=== PATIENT | female | born 1950 | race Caucasian/White ===

== ENCOUNTER 2017-09-16 12:51 | Inpatient (IN) | payer MEDICARE, MEDICAID ==
[~2017-09-16] VITALS: Ht 157.5 cm; Wt 100.0 kg
[~2017-09-16 12:51] MED LIST: ALBU8HFA INH; ALBU8HFA PO; ASPI-1265 PO; ATOR10TA87 PO; DULO-31 PO; FOLI-43 PO; FURO-150 PO; LOP25T PO; PANT-47 PO; SYN0.088T PO
[2017-09-16] MEDS ORDERED: aspirin 81mg tab.chew PO ONE (13:05)
[2017-09-16] MEDS ORDERED: nitroGLYCERIN 0.4mg SUBLingual tab SL PRN ×2 (13:05→14:20)
[2017-09-16] MEDS ORDERED: LORazepam 1 MG tablet PO ONE (13:10)
[2017-09-16 13:22] LABS: BASOPHILS % (AUTO) 0.5 % (0-1); EOSINOPHILS # (AUTO) 0.2 X10'3 (0-0.9); EOSINOPHILS % (AUTO) 2.4 % (0-6); HEMATOCRIT 38.3 % (35.0-45.0); HEMOGLOBIN 13.6 g/dl (12.0-16.0); LYMPHOCYTES # (AUTO) 2.1 X10'3 (1.1-4.8); LYMPHOCYTES % (AUTO) 26.9 % (21-51); MEAN CORPUSCULAR HEMOGLOBIN 32.7 PG (27.0-31.0); MEAN CORPUSCULAR HGB CONC 35.4 % (33.0-36.5); MEAN CORPUSCULAR VOLUME 92.2 FL (78-98); MEAN PLATELET VOLUME 7.3 FL (7.4-10.4); MONOCYTES # (AUTO) 0.5 X10'3 (0-0.9); MONOCYTES % (AUTO) 6.2 % (2-12); PLATELET COUNT 265 X10'3 (140-440); RED BLOOD COUNT 4.16 X10'6 (4.20-5.60); RED CELL DISTRIBUTION WIDTH 14.6 % (11.5-14.5); WHITE BLOOD COUNT 7.8 X10'3 (4.5-11.0)
[2017-09-16 13:37] LABS: PARTIAL THROMBOPLASTIN TIME 24 SECONDS (22-32); PROTHROMBIN TIME 10.7 SECONDS (9.0-12.0)
[2017-09-16 13:49] LABS: ALANINE AMINOTRANSFERASE 44 U/L (12-78); ALBUMIN 3.8 G/DL (3.4-5.0); ALBUMIN/GLOBULIN RATIO 0.9 (1.1-1.5); ALKALINE PHOSPHATASE 97 IU/L (46-116); ANION GAP 12 (8-16); ASPARTATE AMINO TRANSFERASE 28 U/L (10-37); BILIRUBIN,TOTAL 1.3 MG/DL (0.1-1.0); BLOOD UREA NITROGEN 17 MG/DL (7-18); BUN/CREATININE RATIO 20.5 (6.6-38.0); CHLORIDE 107 MMOL/L (99-107); CREATININE 0.83 MG/DL (0.40-0.90); GLUCOSE 154 MG/DL (70-104); MAGNESIUM 1.8 MG/DL (1.5-2.4); POTASSIUM 3.7 MMOL/L (3.5-5.1); SODIUM 141 MMOL/L (135-145); TOTAL CARBON DIOXIDE 22.5 MMOL/L (24-32); TOTAL PROTEIN 7.9 G/DL (6.4-8.2); eGFR 68 ML/MIN
[2017-09-16 13:53] LABS: D-DIMER 0.26 MG/L FEU (0-0.50)
[2017-09-16] MEDS ORDERED: regadenoson 0.4mg/5ml syringe IV ONE (14:20)
[2017-09-16] MEDS ORDERED: metoprolol tartrate 1mg/ml inj IV PRN (14:20)
[2017-09-16] MEDS ORDERED: LORazepam 0.5 MG tablet PO PRN (14:20)
[2017-09-16] MEDS ORDERED: aminophylline 250mg/10ml inj. IV PRN (14:20)
[2017-09-16] MEDS ORDERED: ALBUTEROL INH PRN (14:20)
[2017-09-16] MEDS ORDERED: HYDROcodone/acetaminophen 10/325mg tab PO PRN (17:00)
[2017-09-16] MEDS ORDERED: ondansetron/PF 4mg/2ml inj IV PRN (17:00)
[2017-09-16] MEDS ORDERED: morphine 4 MG/ML inj SYRINge IV PRN (17:00)
[2017-09-16] MEDS ORDERED: mag hydrox/Alum hydrox/simeth 30ml oral suspension PO PRN (17:00)
[2017-09-16] MEDS ORDERED: HYDROcodone/acetaminophen 5mg/325mg tablet PO PRN (17:00)
[2017-09-16] MEDS ORDERED: acetaminophen 325mg tablet PO PRN (17:00)
[2017-09-16] MEDS ORDERED: magnesium hydroxide 30ml (MOM) UD suspension PO PRN (17:00)
[2017-09-16] MEDS ORDERED: albuterol 2.5 MG/3 ML nebule NEB PRN (17:10)
[2017-09-16] MEDS: duloxetine 30mg CAPSULE.DR PO SCH (20:36)
[2017-09-16 21:00] VITALS: BP 159/59
[2017-09-16] MEDS ORDERED: atorvastatin 10mg tablet PO SCH (21:00)
[2017-09-16 23:00] VITALS: BP 131/65
[2017-09-17] VITALS (14 sets, daily range): BP systolic 124–153; BP diastolic 52–75
[2017-09-17 01:38] LABS: ALANINE AMINOTRANSFERASE 41 U/L (12-78); ALBUMIN 3.5 G/DL (3.4-5.0); ALBUMIN/GLOBULIN RATIO 0.9 (1.1-1.5); ALKALINE PHOSPHATASE 89 IU/L (46-116); ANION GAP 11 (8-16); ASPARTATE AMINO TRANSFERASE 28 U/L (10-37); BILIRUBIN,TOTAL 1.3 MG/DL (0.1-1.0); BLOOD UREA NITROGEN 20 MG/DL (7-18); CALCIUM 9.2 MG/DL (8.5-10.1); CHLORIDE 104 MMOL/L (99-107); CREATININE 0.77 MG/DL (0.40-0.90); GLUCOSE 102 MG/DL (70-104); POTASSIUM 3.6 MMOL/L (3.5-5.1); SODIUM 140 MMOL/L (135-145); TOTAL CARBON DIOXIDE 25.3 MMOL/L (24-32); TOTAL PROTEIN 7.3 G/DL (6.4-8.2); eGFR 75 ML/MIN
[2017-09-17 01:50] LABS: BASOPHILS % (AUTO) 0.6 % (0-1); EOSINOPHILS # (AUTO) 0.3 X10'3 (0-0.9); EOSINOPHILS % (AUTO) 4.3 % (0-6); HEMATOCRIT 36.4 % (35.0-45.0); HEMOGLOBIN 12.8 g/dl (12.0-16.0); LYMPHOCYTES # (AUTO) 2.3 X10'3 (1.1-4.8); MEAN CORPUSCULAR HEMOGLOBIN 32.6 PG (27.0-31.0); MEAN CORPUSCULAR HGB CONC 35.1 % (33.0-36.5); MEAN PLATELET VOLUME 7.4 FL (7.4-10.4); MONOCYTES # (AUTO) 0.6 X10'3 (0-0.9); NEUTROPHILS # (AUTO) 3.9 X10'3 (1.8-7.7); NEUTROPHILS % (AUTO) 54.1 % (42-75); PLATELET COUNT 224 X10'3 (140-440); RED BLOOD COUNT 3.92 X10'6 (4.20-5.60); RED CELL DISTRIBUTION WIDTH 14.7 % (11.5-14.5); WHITE BLOOD COUNT 7.2 X10'3 (4.5-11.0)
[2017-09-17] MEDS ORDERED: regadenoson 0.4mg/5ml syringe IV ONE ×2 (06:00→09:55)
[2017-09-17] MEDS: duloxetine 30mg CAPSULE.DR PO SCH (07:56)
[2017-09-17] MEDS ORDERED: enoxaparin 40mg/0.4ml syringe SQ SCH (08:00)
[2017-09-17] MEDS ORDERED: levoTHYROXINE 88mcg tablet PO SCH (08:00)
[2017-09-17] MEDS ORDERED: furosemide 20MG tablet PO SCH (08:00)
[2017-09-17] MEDS ORDERED: folic acid 1mg tablet PO SCH (08:00)
[2017-09-17] MEDS ORDERED: metoprolol tartrate 25mg tablet PO SCH (08:00)
[2017-09-17] MEDS ORDERED: aspirin 81mg tab.chew PO SCH (08:00)
[2017-09-17] MEDS ORDERED: pantoprazole 40mg Tablet.DR PO SCH (08:00)
[2017-09-17] MEDS ORDERED: aminophylline inj. 10 ML IV ONE (09:55)
== END 2017-09-17 14:48 | disposition home or self-care (01) | DRG 313 ==
LOC: ER 12:52 → ED HOLD 17:00 → EDBEDREQ 18:14 → PCU 3S 19:10
PROVIDERS: ADMIT Internal Medicine; ATTEND Internal Medicine
PROC: 4A02XM4 Measurement of Cardiac Total Activity, External Approach (ICD-10-PCS; principal; 2017-09-17)
PROC: 3E073KZ Introduction of Other Diagnostic Substance into Coronary Artery, Percutaneous Approach (ICD-10-PCS; 2017-09-17)
DX: R07.89 Other chest pain (principal); I25.10 Atherosclerotic heart disease of native coronary artery without angina pectoris; I11.0 Hypertensive heart disease with heart failure; I50.30 Unspecified diastolic (congestive) heart failure; E66.01 Morbid (severe) obesity due to excess calories; Z68.41 Body mass index [BMI] 40.0-44.9, adult; E03.9 Hypothyroidism, unspecified; E78.00 Pure hypercholesterolemia, unspecified; F32.9 Major depressive disorder, single episode, unspecified; F41.1 Generalized anxiety disorder; K21.9 Gastro-esophageal reflux disease without esophagitis; M06.9 Rheumatoid arthritis, unspecified; Z60.2 Problems related to living alone; Z56.0 Unemployment, unspecified; I25.2 Old myocardial infarction; Z90.710 Acquired absence of both cervix and uterus; Z79.899 Other long term (current) drug therapy; Z79.82 Long term (current) use of aspirin; Z82.49 Family history of ischemic heart disease and other diseases of the circulatory system
CPT/HCPCS: 36415; 71045; 78452; 80053; 83735; 83880; 84439; 84443; 84484; 85025; 85379; 85610; 85730; 87070; 93005; 93017; 93306; 99285; A9500; J0280; J1650

== ENCOUNTER 2021-01-02 13:58 | Emergency (ER) | payer MEDICARE, MEDICAID ==
[~2021-01-02] VITALS: Ht 157.5 cm; Wt 95.0 kg
[2021-01-02 14:25] VITALS: BP 118/79
[2021-01-02 15:41] LABS: BASOPHILS # (AUTO) 0.1 X10'3 (0-0.2); BASOPHILS % (AUTO) 0.9 % (0-1); EOSINOPHILS # (AUTO) 0.2 X10'3 (0-0.9); EOSINOPHILS % (AUTO) 2.3 % (0-6); HEMATOCRIT 37.7 % (35.0-45.0); HEMOGLOBIN 12.8 g/dl (12.0-16.0); LYMPHOCYTES # (AUTO) 2.1 X10'3 (1.1-4.8); LYMPHOCYTES % (AUTO) 23.9 % (21-51); MEAN CORPUSCULAR HEMOGLOBIN 29.9 PG (27.0-31.0); MEAN CORPUSCULAR HGB CONC 34.1 g/dL (33.0-36.5); MEAN CORPUSCULAR VOLUME 87.7 FL (78-98); MEAN PLATELET VOLUME 7.2 FL (7.4-10.4); MONOCYTES # (AUTO) 0.9 X10'3 (0-0.9); MONOCYTES % (AUTO) 10.5 % (2-12); NEUTROPHILS # (AUTO) 5.6 X10'3 (1.8-7.7); NEUTROPHILS % (AUTO) 62.4 % (42-75); PLATELET COUNT 359 X10'3 (140-440); RED BLOOD COUNT 4.29 X10'6 (4.20-5.60); RED CELL DISTRIBUTION WIDTH 12.9 % (11.5-14.5); WHITE BLOOD COUNT 8.9 X10'3 (4.5-11.0)
[2021-01-02 16:12] LABS: ALANINE AMINOTRANSFERASE 21 U/L (12-78); ALBUMIN 3.4 G/DL (3.4-5.0); ALBUMIN/GLOBULIN RATIO 0.6 (1.1-1.5); ALKALINE PHOSPHATASE 86 IU/L (46-116); ANION GAP 12 (8-16); ASPARTATE AMINO TRANSFERASE 27 U/L (10-37); BILIRUBIN,TOTAL 0.8 MG/DL (0.1-1.0); BLOOD UREA NITROGEN 17 MG/DL (7-18); BUN/CREATININE RATIO 21.5 (6.6-38.0); CALCIUM 8.8 MG/DL (8.5-10.1); CHLORIDE 103 MMOL/L (99-107); CREATININE 0.79 MG/DL (0.40-0.90); GLUCOSE 112 MG/DL (70-104); POTASSIUM 4.4 MMOL/L (3.5-5.1); SODIUM 138 MMOL/L (135-145); TOTAL CARBON DIOXIDE 23.4 MMOL/L (24-32); TOTAL PROTEIN 8.8 G/DL (6.4-8.2); eGFR 72 ML/MIN
== END 2021-01-02 22:16 | disposition left against medical advice (07) ==
LOC: ER 13:59
DX: F41.9 Anxiety disorder, unspecified (principal); Z53.21 Procedure and treatment not carried out due to patient leaving prior to being seen by health care provider
CPT/HCPCS: 36415; 71045; 80053; 83880; 84484; 85025; 93005; 99285

== ENCOUNTER 2021-09-09 09:53 | Emergency (ER) | payer MEDICARE, MEDICAID ==
[~2021-09-09] VITALS: Ht 157.5 cm; Wt 93.1 kg
[2021-09-09 10:01] VITALS: BP 180/102
[2021-09-09] MEDS ORDERED: HYDROcodone/acetaminophen 5mg/325mg tablet PO ONE (10:10)
[2021-09-09 10:43] LABS: BASOPHILS # (AUTO) 0.1 X10'3 (0-0.2); BASOPHILS % (AUTO) 1.2 % (0-1); EOSINOPHILS # (AUTO) 0.2 X10'3 (0-0.9); EOSINOPHILS % (AUTO) 2.5 % (0-6); HEMATOCRIT 31.4 % (35.0-45.0); HEMOGLOBIN 10.8 g/dl (12.0-16.0); LYMPHOCYTES # (AUTO) 1.6 X10'3 (1.1-4.8); LYMPHOCYTES % (AUTO) 17.2 % (21-51); MEAN CORPUSCULAR HEMOGLOBIN 30.1 PG (27.0-31.0); MEAN CORPUSCULAR HGB CONC 34.4 g/dL (33.0-36.5); MEAN CORPUSCULAR VOLUME 87.4 FL (78-98); MEAN PLATELET VOLUME 7.1 FL (7.4-10.4); MONOCYTES # (AUTO) 0.7 X10'3 (0-0.9); MONOCYTES % (AUTO) 7.4 % (2-12); NEUTROPHILS # (AUTO) 6.7 X10'3 (1.8-7.7); NEUTROPHILS % (AUTO) 71.7 % (42-75); PLATELET COUNT 318 X10'3 (140-440); RED BLOOD COUNT 3.59 X10'6 (4.20-5.60); RED CELL DISTRIBUTION WIDTH 15.6 % (11.5-14.5); WHITE BLOOD COUNT 9.4 X10'3 (4.5-11.0)
[2021-09-09 10:55] LABS: ALANINE AMINOTRANSFERASE 16 U/L (12-78); ALBUMIN 3.5 G/DL (3.4-5.0); ALBUMIN/GLOBULIN RATIO 0.7 (1.1-1.5); ALKALINE PHOSPHATASE 98 IU/L (46-116); ANION GAP 10 (8-16); ASPARTATE AMINO TRANSFERASE 19 U/L (10-37); BLOOD UREA NITROGEN 13 MG/DL (7-18); BUN/CREATININE RATIO 21.3 (6.6-38.0); CALCIUM 9.3 MG/DL (8.5-10.1); CHLORIDE 104 MMOL/L (99-107); CREATININE 0.61 MG/DL (0.40-0.90); GLUCOSE 103 MG/DL (70-104); POTASSIUM 4.4 MMOL/L (3.5-5.1); SODIUM 140 MMOL/L (135-145); TOTAL CARBON DIOXIDE 26.5 MMOL/L (24-32); TOTAL PROTEIN 8.6 G/DL (6.4-8.2); eGFR > 90 ML/MIN
--- NOTE | 2021-09-09 10:58 | NUR ---
pt trying to leave. states," im not putting those greens on" i live down the [address] and im fine. informed jailene dimas. got pt back to room and will have [facility] evaluate pt.
[2021-09-09 11:05] LABS: ETHANOL < 0.010 GM/DL (0.0-0.010)
== END 2021-09-10 07:15 | disposition home or self-care (01) ==
LOC: ER 09:58
DX: R45.851 Suicidal ideations (principal); F32.A Depression, unspecified; G89.4 Chronic pain syndrome; M06.9 Rheumatoid arthritis, unspecified; I11.0 Hypertensive heart disease with heart failure; I50.9 Heart failure, unspecified; E78.00 Pure hypercholesterolemia, unspecified; I25.2 Old myocardial infarction; E03.9 Hypothyroidism, unspecified; F41.9 Anxiety disorder, unspecified; Z90.49 Acquired absence of other specified parts of digestive tract; Z90.710 Acquired absence of both cervix and uterus; Z98.890 Other specified postprocedural states; Z95.1 Presence of aortocoronary bypass graft; Z60.2 Problems related to living alone; Z56.0 Unemployment, unspecified; Z79.82 Long term (current) use of aspirin; Z79.899 Other long term (current) drug therapy
CPT/HCPCS: 36415; 80053; 80320; 84443; 85025; 99285

== ENCOUNTER 2022-07-25 05:21 | Inpatient (IN) | payer MEDICARE, MEDICAID ==
[2022-07-18 15:26] LABS: BASOPHILS # (AUTO) 0.1 X10'3 (0-0.2); EOSINOPHILS # (AUTO) 0.3 X10'3 (0-0.9); EOSINOPHILS % (AUTO) 3.3 % (0-6); LYMPHOCYTES % (AUTO) 23.5 % (21-51); MEAN CORPUSCULAR HEMOGLOBIN 31.2 PG (27.0-31.0); MEAN CORPUSCULAR HGB CONC 33.9 g/dL (33.0-36.5); MEAN PLATELET VOLUME 7.1 FL (7.4-10.4); MONOCYTES # (AUTO) 0.7 X10'3 (0-0.9); MONOCYTES % (AUTO) 7.9 % (2-12); NEUTROPHILS # (AUTO) 5.6 X10'3 (1.8-7.7); NEUTROPHILS % (AUTO) 64.3 % (42-75); PRE OP HEMATOCRIT 34.8 % (35.0-45.0); PRE OP HEMOGLOBIN 11.8 g/dL (12.0-16.0); PRE OP PLATELET COUNT 313 X10'3 (140-440); RED BLOOD COUNT 3.79 X10'6 (4.20-5.60); RED CELL DISTRIBUTION WIDTH 13.9 % (11.5-14.5)
[2022-07-18 15:50] LABS: ALBUMIN/GLOBULIN RATIO 0.9 (1.1-1.5); ALKALINE PHOSPHATASE 105 IU/L (46-116); BLOOD UREA NITROGEN 15 MG/DL (7-18); BUN/CREATININE RATIO 19.5 (6.6-38.0); CALCIUM 9.3 MG/DL (8.5-10.1); CHLORIDE 102 MMOL/L (99-107); CREATININE 0.77 MG/DL (0.40-0.90); PRE OP ALT 24 U/L (30-65); PRE OP ANION GAP 7 (8-16); PRE OP AST 23 U/L (10-37); PRE OP GLUCOSE 100 MG/DL (70-104); PRE OP POTASSIUM 3.7 MMOL/L (3.4-5.1); PRE OP SODIUM 138 MMOL/L (135-145); TOTAL CARBON DIOXIDE 28.7 MMOL/L (24-32); TOTAL PROTEIN 8.5 G/DL (6.4-8.2); eGFR 73 ML/MIN
[~2022-07-25] VITALS: Ht 157.5 cm; Wt 97.2 kg
[2022-07-25] VITALS (19 sets, daily range): BP systolic 84–195; BP diastolic 36–85
[~2022-07-25 05:21] MED LIST changes: +ACET-2615 PO; -ALBU8HFA INH; -ALBU8HFA PO; +APIX5TAB3 PO; -ASPI-1265 PO; -ATOR10TA87 PO; +ATOR40TA71 PO; +CALC1TAB PO; -DULO-31 PO; +FLEC100T2 PO; +HYDR-3686 PO; +LEVO100T9 PO; +LISI20TA28 PO; +METH2.5T PO; +MULT-1173 PO; -PANT-47 PO; -SYN0.088T PO; +ringers solution, lacted 1,000 ML IV SCH
[2022-07-25] MEDS ORDERED: gabapentin 300mg capsule PO ONE (05:30)
[2022-07-25] MEDS ORDERED: oxyCODONE SR 10mg (sust. release) tab -2 tabs (20mg) PO ONE (05:30)
[2022-07-25] MEDS ORDERED: vancomycin 1,500 MG in NS 300ml IV soln IV ONE (05:30)
[2022-07-25] MEDS ORDERED: ceFAZolin inj. 2,000 MG in dextrose 5%-water 100 ML IV ONE (05:30)
[2022-07-25] MEDS ORDERED: acetaminophen 325mg tablet PO ONE (05:30)
[2022-07-25] MEDS ORDERED: celeCOXIB 100mg capsule PO ONE (05:30)
[2022-07-25] MEDS ORDERED: tranexamic acid inj. 1,000 MG in normal saline IV soln 100ML IV ONE (05:30)
[2022-07-25] MEDS ORDERED: DOCUMENT DATE & TIME OF BETA-BLOCKER PO ONE (05:30)
[2022-07-25] MEDS ORDERED: metoclopramide 5 mg/ml inj IV ONE (05:30)
[2022-07-25] MEDS ORDERED: famotidine 20mg tablet PO ONE (05:30)
[2022-07-25] MEDS ORDERED: LIDOcaine 1% (10mg/ml) 2ml vial ONE (05:59)
[2022-07-25] MEDS ORDERED: epiNEPHrine 1 mg/ml inj ONE (06:42)
[2022-07-25] MEDS ORDERED: vancomycin 1,000mg inj ONE (06:42)
[2022-07-25] MEDS ORDERED: cloNIDine hcl/PF 100mcg/ml inj ONE (06:42)
[2022-07-25] MEDS ORDERED: ketorolac trometh. 30mg/ml inj. ONE (06:42)
[2022-07-25] MEDS ORDERED: ROPIVAcaine 0.5% (5mg/ml) 30ml vial ONE ×2 (06:43→08:36)
[2022-07-25] MEDS ORDERED: acetaminophen 325mg tablet PO PRN (07:00)
[2022-07-25] MEDS ORDERED: HYDROmorphone inj. 0.5 MG/0.5 ML DISP.SYRIN IV PRN (07:00)
[2022-07-25] MEDS ORDERED: HYDROmorphone 1 mg/ml syringe IV PRN (07:00)
[2022-07-25] MEDS ORDERED: HYDROcodone/acetaminophen 10/325mg tab PO PRN (07:00)
[2022-07-25] MEDS ORDERED: bisacodyl 10mg suppository rectal RC PRN (07:00)
[2022-07-25] MEDS ORDERED: hydrOXYzine 25 MG tablet PO PRN (07:00)
[2022-07-25] MEDS ORDERED: ondansetron/PF 4mg/2ml inj IV PRN ×2 (07:00→08:25)
[2022-07-25] MEDS ORDERED: diphenhydrAMINE 25mg capsule PO PRN ×2 (07:00)
[2022-07-25] MEDS ORDERED: tranexamic acid inj. 1,000 MG in normal saline 100ml IV soln 90 ML IV ONE ×2 (07:00→11:30)
[2022-07-25] MEDS ORDERED: magnesium hydroxide 30ml (MOM) UD suspension PO PRN (07:00)
[2022-07-25] MEDS ORDERED: naloxone 0.4 mg/ml inj IV PRN (07:00)
--- NOTE | 2022-07-25 07:00 | NUR ---
strong palpable pedal pulse to r foot marked w/ pen. Pt showered x 5 per protocol w/ CHG. Pt states she read total knee booklet. csm in tact bilat.
[2022-07-25] MEDS ORDERED: midazolam 1 mg/ML 2ml injection ONE ×2 (07:16)
[2022-07-25] MEDS ORDERED: fentaNYL/PF 50MCG/1 ML 2ML syringe ONE (07:16)
[2022-07-25] MEDS: multivitamins, therapeutics tablet PO SCH (08:00)
[2022-07-25] MEDS: furosemide 20MG tablet PO SCH (08:00)
[2022-07-25] MEDS: lisinopril 20mg tablet PO SCH (08:00)
[2022-07-25] MEDS: levoTHYROXINE 100mcg tablet PO SCH (08:00)
[2022-07-25] MEDS: flecainide 50mg tablet PO SCH ×2 (08:00→21:01)
[2022-07-25] MEDS: ascorbic acid 500mg tablet PO SCH ×2 (08:00→21:00)
[2022-07-25] MEDS: atorvastatin 20mg tablet PO SCH (08:00)
[2022-07-25] MEDS: gabapentin 300mg capsule PO SCH ×3 (08:00→21:01)
[2022-07-25] MEDS: metoprolol tartrate 25mg tablet PO SCH ×2 (08:00→20:00)
[2022-07-25] MEDS: apixaban 5mg tablet PO SCH ×2 (08:00→21:02)
[2022-07-25] MEDS ORDERED: ROPIVAcaine 0.5% (5mg/ml) 30ml vial IJ ONE (08:12)
[2022-07-25] MEDS ORDERED: epiNEPHrine 1 mg/ml inj SQ ONE (08:13)
[2022-07-25] MEDS ORDERED: cloNIDine hcl/PF 100mcg/ml inj EP ONE (08:13)
[2022-07-25] MEDS ORDERED: ketorolac trometh. 30mg/ml inj. IV ONE (08:13)
[2022-07-25] MEDS ORDERED: ringers solution, lacted 1,000 ML IV SCH (08:25)
[2022-07-25] MEDS ORDERED: proCHLORperazine 10 MG/2 ml inj IV PRN (08:25)
[2022-07-25] MEDS ORDERED: morphine 4 MG/ML inj SYRINge IV PRN (08:25)
[2022-07-25] MEDS ORDERED: meperidine/PF 25mg/ml syringe IV PRN ×3 (08:25)
[2022-07-25] MEDS ORDERED: morphine 2 MG/ML inj. syringe IV PRN (08:25)
[2022-07-25] MEDS ORDERED: ROPIVAcaine 0.2%/PF PUMP/bolus 545 ML ADDCANAL SCH (08:30)
[2022-07-25] MEDS ORDERED: ROPIVAcaine 0.2% (10 MG/5 ML) BOLUS INJECTION ADDCANAL PRN (08:30)
[2022-07-25] MEDS ORDERED: propofol inj 20 ML IV ONE (08:36)
--- NOTE | 2022-07-25 09:14 | NUR ---
Received from OR via , accompanied by Anesthesiologist CARLA AND OR NURSE and report given by Anesthesiolgist. PT IS DROWSY YET REPSONDS TO VERBAL STIMULI. DENIES PAIN OR DISCOMFORT. 20G TO LT HAND. VICENTE DRESSING WITH PWDR PACK IN PLACE. ONQ CATH IN PLACE. VSS WITH SB AND HX IF AFIB Addendum: 07/25/22 at 1100 by Chari Bañuelos RN Amended: Links added.
--- NOTE | 2022-07-25 10:34 | NUR ---
PATIENT TAKEN TO ROOM WITH ALL BELONGINGS AND HOOKED UP TO MONITORS IN ROOM AND GIVEN CALL LIGHT, REPORT GIVEN TO RN WHO HAS TAKEN OVER PATIENT CARE. Addendum: 07/25/22 at 1101 by Chari Bañuelos RN Amended: Links added.
[2022-07-25] MEDS: potassium cl 20mEq in 1/2 NS 1,000 ML IV SCH ×3 (13:32→21:17)
[2022-07-25] MEDS: ceFAZolin/D5W- 1GM premix 50 ML IV SCH (16:18)
[2022-07-25] MEDS ORDERED: vancomycin/NS 1 GM ADD-VANTAGE 250 ML IV SCH (20:00)
[2022-07-25] MEDS: sennosides 8.6mg tablet PO SCH (21:00)
[2022-07-25] MEDS: HYDROcodone/acetaminophen 10/325mg tab PO PRN (22:34)
[2022-07-26] MEDS: ceFAZolin/D5W- 1GM premix 50 ML IV SCH (00:08)
[2022-07-26 00:12] VITALS: BP 114/52
[2022-07-26 02:00] VITALS: BP 133/55
[2022-07-26] MEDS: HYDROcodone/acetaminophen 10/325mg tab PO PRN (06:02)
[2022-07-26] MEDS: potassium cl 20mEq in 1/2 NS 1,000 ML IV SCH ×3 (07:00→23:00)
[2022-07-26 07:18] LABS: BASOPHILS # (AUTO) 0.1 X10'3 (0-0.2); BASOPHILS % (AUTO) 0.8 % (0-1); EOSINOPHILS # (AUTO) 0.2 X10'3 (0-0.9); EOSINOPHILS % (AUTO) 1.8 % (0-6); HEMOGLOBIN 9.4 g/dl (12.0-16.0); LYMPHOCYTES # (AUTO) 1.4 X10'3 (1.1-4.8); LYMPHOCYTES % (AUTO) 16.3 % (21-51); MEAN CORPUSCULAR HGB CONC 34.7 g/dL (33.0-36.5); MEAN CORPUSCULAR VOLUME 92.3 FL (78-98); MEAN PLATELET VOLUME 7.2 FL (7.4-10.4); MONOCYTES # (AUTO) 0.7 X10'3 (0-0.9); MONOCYTES % (AUTO) 8.1 % (2-12); NEUTROPHILS # (AUTO) 6.1 X10'3 (1.8-7.7); PLATELET COUNT 218 X10'3 (140-440); RED BLOOD COUNT 2.93 X10'6 (4.20-5.60); RED CELL DISTRIBUTION WIDTH 13.5 % (11.5-14.5); WHITE BLOOD COUNT 8.4 X10'3 (4.5-11.0)
[2022-07-26 07:33] LABS: ANION GAP 6 (8-16); CHLORIDE 105 MMOL/L (99-107); POTASSIUM 4.4 MMOL/L (3.5-5.1); SODIUM 136 MMOL/L (135-145)
[2022-07-26] MEDS: metoprolol tartrate 25mg tablet PO SCH ×2 (08:00→20:30)
[2022-07-26] MEDS: multivitamins, therapeutics tablet PO SCH (09:16)
[2022-07-26] MEDS: ascorbic acid 500mg tablet PO SCH ×2 (09:16→20:30)
[2022-07-26] MEDS: flecainide 50mg tablet PO SCH ×2 (09:16→20:30)
[2022-07-26] MEDS: atorvastatin 20mg tablet PO SCH (09:17)
[2022-07-26] MEDS: gabapentin 300mg capsule PO SCH ×3 (09:17→21:05)
[2022-07-26] MEDS: apixaban 5mg tablet PO SCH ×2 (09:17→20:30)
[2022-07-26] MEDS: furosemide 20MG tablet PO SCH (09:17)
[2022-07-26] MEDS: levoTHYROXINE 100mcg tablet PO SCH (09:17)
[2022-07-26] MEDS: lisinopril 20mg tablet PO SCH (09:24)
--- NOTE | 2022-07-26 10:47 | NUR ---
Joint surgery consult: Pt s/p R knee surgery this admit per EMR. Pt seen by GERALDINE for written/verbal high protein diet ed w/ RD contact information provided. GERALDINE encouraged pt to contact dietitian's office if further nutrition questions/concerns. Addendum: 07/26/22 at [address] Amended: Links added.
[2022-07-26 18:00] VITALS: BP 144/102
[2022-07-26] MEDS: celeCOXIB 100mg capsule PO SCH (20:30)
[2022-07-26] MEDS: sennosides 8.6mg tablet PO SCH (21:00)
[2022-07-26 22:00] VITALS: BP 123/70
[2022-07-27 02:00] VITALS: BP 132/76
[2022-07-27 04:27] LABS: BASOPHILS % (AUTO) 0.6 % (0-1); EOSINOPHILS # (AUTO) 0.4 X10'3 (0-0.9); EOSINOPHILS % (AUTO) 4.6 % (0-6); HEMATOCRIT 27.6 % (35.0-45.0); HEMOGLOBIN 9.6 g/dl (12.0-16.0); LYMPHOCYTES # (AUTO) 1.4 X10'3 (1.1-4.8); MEAN CORPUSCULAR HGB CONC 34.8 g/dL (33.0-36.5); MEAN CORPUSCULAR VOLUME 91.9 FL (78-98); MEAN PLATELET VOLUME 6.9 FL (7.4-10.4); MONOCYTES # (AUTO) 0.9 X10'3 (0-0.9); MONOCYTES % (AUTO) 10.2 % (2-12); NEUTROPHILS # (AUTO) 5.9 X10'3 (1.8-7.7); NEUTROPHILS % (AUTO) 68.6 % (42-75); PLATELET COUNT 220 X10'3 (140-440); RED CELL DISTRIBUTION WIDTH 13.5 % (11.5-14.5); WHITE BLOOD COUNT 8.7 X10'3 (4.5-11.0)
[2022-07-27] MEDS: HYDROcodone/acetaminophen 10/325mg tab PO PRN ×2 (05:59→13:01)
[2022-07-27 06:00] VITALS: BP 145/67
--- NOTE | 2022-07-27 06:43 | NUR ---
Problems reprioritized. Patient report given, questions answered & plan of care reviewed with HARJINDER MIRELES.
[2022-07-27 10:00] VITALS: BP 155/99
[2022-07-27] MEDS: metoprolol tartrate 25mg tablet PO SCH (10:17)
[2022-07-27] MEDS: atorvastatin 20mg tablet PO SCH (10:17)
[2022-07-27] MEDS: gabapentin 300mg capsule PO SCH ×2 (10:17→13:01)
[2022-07-27] MEDS: celeCOXIB 100mg capsule PO SCH (10:17)
[2022-07-27] MEDS: furosemide 20MG tablet PO SCH (10:17)
[2022-07-27 10:18] VITALS: BP_SYST 106
[2022-07-27] MEDS: multivitamins, therapeutics tablet PO SCH (10:18)
[2022-07-27] MEDS: flecainide 50mg tablet PO SCH (10:18)
[2022-07-27] MEDS: apixaban 5mg tablet PO SCH (10:18)
[2022-07-27] MEDS: ascorbic acid 500mg tablet PO SCH (10:18)
[2022-07-27] MEDS: lisinopril 20mg tablet PO SCH (10:18)
[2022-07-27] MEDS: levoTHYROXINE 100mcg tablet PO SCH (10:20)
== END 2022-07-27 13:07 | disposition home or self-care (01) | DRG 470 ==
LOC: PAS 05:21 → ORTHO 4S 07:02 → PAS 10:58 → ORTHO 4S 10:58
PROVIDERS: ADMIT Orthopaedic Surgery; ATTEND Orthopaedic Surgery
PROC: 0SRC0J9 Replacement of Right Knee Joint with Synthetic Substitute, Cemented, Open Approach (ICD-10-PCS; principal; 2022-07-25 07:24)
DX: M17.11 Unilateral primary osteoarthritis, right knee (principal)
CPT/HCPCS: 36415; 73560; 80051; 80053; 82948; 84443; 85025; 86885; 86900; 86901; 87081; 93005; 97110; 97116; 97161; 97530; 97535; A4215; A4615; A6253; A6449; A7000; C1713; C1776; G0378; J0171; J0690; J0735; J1885; J2175; J2250; J2704; J2765; J2795; J3010; J3370; J3480; J3490; J7040; J7060; J7120; Q0177

== ENCOUNTER 2022-10-05 23:01 | Emergency (ER) | payer MEDICARE, MEDICAID ==
[~2022-10-05] VITALS: Ht 157.5 cm; Wt 86.4 kg
[~2022-10-05 23:01] MED LIST changes: -ringers solution, lacted 1,000 ML IV SCH
[2022-10-05 23:09] VITALS: BP 197/86
== END 2022-10-06 01:59 | disposition left against medical advice (07) ==
LOC: ER 23:01
DX: R42 Dizziness and giddiness (principal); Z53.21 Procedure and treatment not carried out due to patient leaving prior to being seen by health care provider
CPT/HCPCS: 99281